=== PATIENT | female | born 1980 | race African-American/Black ===

== ENCOUNTER 2019-07-07 00:54 | Inpatient (IN) | payer BC ==
[~2019-07-07] VITALS: Ht 177.8 cm; Wt 65.8 kg
--- NOTE | 2019-07-07 01:06 | NUR ---
ED Nurse Note: pt walked in c/o RUQ abd pain radiating to umbilical area x 1.5 hr, pt reports pain started all of sudden, sharp pain and report pain relieved when she is standing straight. pt vss, no n/v/d at this time, will cont monitor. abd soft tender noted, active BS.
[2019-07-07] MEDS ORDERED: Morphine Sulfate 4mg/ml Inj (IV USE ONLY) IVP ONE ×2 (01:15→03:00)
--- NOTE | 2019-07-07 02:12 | Diagnostic Imaging Report ---
Indication: Abdominal pain Technique: Grayscale and duplex Doppler imaging of the abdomen performed. Comparison: None Findings: The liver is unremarkable. Doppler interrogation of the main portal vein shows patency with hepatopedal, monophasic flow. There is no biliary ductal dilatation identified. Gallbladder is unremarkable. CBD is 3.1 mm. There demonstrated part of the pancreas, aorta and IVC show no definite abnormalities. Both kidneys appear unremarkable. There is no hydronephrosis. IMPRESSION: No acute findings identified.
[2019-07-07 02:16] VITALS: BP 116/82
[2019-07-07 02:32] LABS: BASOPHILS % (AUTO) 1.1 % (0.0-2.0); HEMATOCRIT 41.6 % (37.0-47.0); HEMOGLOBIN 13.3 G/DL (12.0-16.0); LYMPHOCYTES % (AUTO) 20.5 % (20.0-45.0); MEAN CORPUSCULAR VOLUME 99 FL (80-99); MONOCYTES % (AUTO) 5.4 % (1.0-10.0); NEUTROPHILS % (AUTO) 68.9 % (45.0-75.0); PLATELET COUNT 214 K/UL (150-450); RED CELL DISTRIBUTION WIDTH 12.6 % (11.6-14.8); WHITE BLOOD COUNT 7.6 K/UL (4.8-10.8)
[2019-07-07 02:36] LABS: ANION GAP 10 mmol/L (5-15); BLOOD UREA NITROGEN 6 mg/dL (7-18); CALCIUM 9.2 MG/DL (8.5-10.1); CARBON DIOXIDE 28 MMOL/L (21-32); CHLORIDE 103 MMOL/L (98-107); CREATININE 0.8 MG/DL (0.55-1.30); POTASSIUM 3.5 MMOL/L (3.5-5.1); SODIUM 140 MMOL/L (136-145)
[2019-07-07 02:41] LABS: ALANINE AMINOTRANSFERASE 31 U/L (12-78); ALBUMIN 4.3 G/DL (3.4-5.0); ALBUMIN/GLOBULIN RATIO 0.9 (1.0-2.7); ALKALINE PHOSPHATASE 31 U/L (46-116); ASPARTATE AMINO TRANSFERASE 28 U/L (15-37); BILIRUBIN,TOTAL 0.9 MG/DL (0.2-1.0)
--- NOTE | 2019-07-07 02:50 | NUR ---
ED Nurse Note: pt reports pain is still unrelieved by pian medication, ERMD notified.
[2019-07-07] MEDS ORDERED: Isovue-300 100ml vial INJ PRN (03:00)
--- NOTE | 2019-07-07 03:14 | NUR ---
ED Nurse Note: pt off to CT.
[2019-07-07] MEDS: Ketorolac 30mg Inj IV ONE ×2 (03:15→03:47)
--- NOTE | 2019-07-07 03:49 | NUR ---
ED Nurse Note: PT RETURNED FROM CT, PT REPORTS PAIN IS STILL THERE BUT REFUSING PAIN MEDICATION. PT ADVISED TO NOTIFY STAFF IF NEED MEDICATION FOR PAIN, PT VERBALIZED UNDERSTANDING.
[2019-07-07 04:00] VITALS: BP 110/83
--- NOTE | 2019-07-07 04:14 | NUR ---
ED Nurse Note: pt reports nausea, ERMD notified, received order 4mg zofran via iv.
--- NOTE | 2019-07-07 04:35 | Diagnostic Imaging Report ---
Indication: Abdominal pain Technique: Continuous helical transaxial imaging of the abdomen and pelvis was obtained from the lung bases to the pubic symphysis during intravenous contrast administration. Coronal 2-D reformats were also obtained. Study obtained in a Siemens sensation [address] Automatic Exposure Control was utilized. Total Dose length Product (DLP): 643.[address] Dose Index Volume (CTDIvol): 14.56 mGy Comparison: None Findings: The study is very limited by the nonadministration of oral contrast material. There are multiple fluid-filled loops of small bowel demonstrated in the lower abdomen especially on the right. Consider enteritis. There is a 2.7 cm rim-enhancing cyst in the left adnexa/ovary. Uterus is present. Trace free fluid noted. Gallbladder is unremarkable. The kidneys, spleen, liver and pancreas are unremarkable. The appendix is not diffusely seen. Difficult to completely exclude early acute appendicitis. IMPRESSION: Consider mild enteritis. Left ovarian cyst [facility] has communicated the preliminary results to the Emergency Department. Their findings are largely concordant with this report. The CT scanner at [facility] is accredited by the [employer] and the scans are performed using dose optimization techniques as appropriate to a performed exam including Automatic Exposure control.
--- NOTE | 2019-07-07 05:11 | NUR ---
ED Nurse Note: Pt off to ultrasound.
[2019-07-07 06:00] VITALS: BP 129/63
[2019-07-07 06:33] LABS: APPEARANCE,URINE CLEAR; BILIRUBIN, URINE NEGATIVE (NEGATIVE); COLOR,URINE PALE YELLOW; GLUCOSE, URINE (UA) NEGATIVE (NEGATIVE); KETONES,URINE 1+ (NEGATIVE); LEUKOCYTE ESTERASE ,URINE NEGATIVE (NEGATIVE); NITRITE,URINE NEGATIVE (NEGATIVE); PH,URINE 6.5 (4.5-8.0); PROTEIN,URINE 1+ (NEGATIVE); UROBILINOGEN,URINE NORMAL MG/DL (0.0-1.0)
--- NOTE | 2019-07-07 06:34 | NUR ---
ED Nurse Note: report given to ADOLPH Conn from [facility].
[2019-07-07] MEDS ORDERED: Metoclopramide 10mg/2ml Inj ONE (06:42)
[2019-07-07] MEDS ORDERED: Ketorolac 30mg Inj ONE (06:42)
[2019-07-07] MEDS ORDERED: DiphenhydrAMINE 50mg/ml Inj ONE (06:42)
--- NOTE | 2019-07-07 06:50 | NUR ---
ED Nurse Note: pt reports nausea and pain, ERMD notified. received order and will continue to monitor.
--- NOTE | 2019-07-07 06:55 | Emergency Room Report ---
History of Present Illness General Chief Complaint: Abdominal Pain Source: Patient Present Illness HPI 38-year-old female presents ED for evaluation. Complaining of abdominal pain which started about 2 hours ago. Pain is epigastric, right upper quadrant, 8 out of 10, sharp, nonradiating. Notes nausea, denies vomiting. Denies diarrhea. Denies fevers or chills. No other aggravating relieving factors. Denies any other associated symptoms Allergies: Coded Allergies: No Known Allergies (Unverified , 07/07/19) Patient History Past Medical History: none Past Surgical History: none Pertinent Family History: none Social History: Denies: smoking, alcohol use, drug use Last Menstrual Period: 06/04/19 Now: No Immunizations: UTD Reviewed Nursing Documentation: PMH: Agreed; PSxH: Agreed Nursing Documentation-PMH Past Medical History: No Stated History Review of Systems All Other Systems: negative except mentioned in HPI Physical Exam Vital Signs Date Time Temp Pulse Resp B/P (MAP) Pulse Ox O2 Delivery O2 Flow Rate FiO2 07/07/19 01:06 99.3 99 18 124/74 (91) 100 Room Air Sp02 EP Interpretation: reviewed, normal General Appearance: no apparent distress, alert, GCS 15, non-toxic Head: normocephalic Eyes: bilateral eye normal inspection, bilateral eye PERRL ENT: normal ENT inspection Neck: normal inspection Respiratory: normal inspection Cardiovascular #1: normal inspection Gastrointestinal: normal bowel sounds, soft, non-distended, no guarding, no rebound, guarding, tenderness Rectal: deferred Genitourinary: normal inspection Musculoskeletal: back normal, gait/station normal, normal range of motion, non- tender Neurologic: alert, oriented x3, responsive, motor strength/tone normal, sensory intact, speech normal Psychiatric: normal inspection Skin: no rash Lymphatic: normal inspection Medical Decision Making Diagnostic Impression: Primary Impression: Intractable abdominal pain ER Course Hospital Course 38-year-old female presents ED with abdominal pain and nausea Differential diagnoses include: BPH, cystitis, pyelonephritis, kidney stone Clinical course Patient placed on stretcher. monitor technician. After initial history and physical I ordered labs, IV fluids, UA, pain medication and ABD US Labs - no leukocytosis, Hb/Hct stable. electrolytes ok, UA negative US - no acute process Continues to have pain so CT was ordered CT abdomen and pelvis - some enhancement in right adnexa ? Small bowel versus ruptured ovarian cyst versus hydrosalpinx versus pyosalpinx versus ectopic Therefore pelvic ultrasound was ordered No ovarian pathology however there does appear to be what could be bowel in the right adnexa. Consideration for hernia. Patient continues to have pain and vomiting. Will admit Case discussed with Dr. Ingram and he agreed to accept the patient to his service for further care and support Dr Sabillon will consult and see patient I feel this is a highly complex case requiring extensive working including EKG/ Rhythm strip, Xray/CT/US, Blood/urine lab work, repeat exams while in ED, and administration of strong opiates/narcotics for pain control, admission to hospital or close patient follow up. Diagnosis - intractable abd pain Patient admitted to floor in serious condition Labs Test 07/07/19 02:00 07/07/19 06:15 White Blood Count 7.6 K/UL (4.8-10.8) Red Blood Count 4.20 M/UL (4.20-5.40) Hemoglobin 13.3 G/DL (12.0-16.0) Hematocrit 41.6 % (37.0-47.0) Mean Corpuscular Volume 99 FL (80-99) Mean Corpuscular Hemoglobin 31.8 PG (27.0-31.0) Mean Corpuscular Hemoglobin Concent 32.0 G/DL (32.0-36.0) Red Cell Distribution Width 12.6 % (11.6-14.8) Platelet Count 214 K/UL (150-450) Mean Platelet Volume 7.0 FL (6.5-10.1) Neutrophils (%) (Auto) 68.9 % (45.0-75.0) Lymphocytes (%) (Auto) 20.5 % (20.0-45.0) Monocytes (%) (Auto) 5.4 % (1.0-10.0) Eosinophils (%) (Auto) 4.0 % (0.0-3.0) Basophils (%) (Auto) 1.1 % (0.0-2.0) Sodium Level 140 MMOL/L (136-145) Potassium Level 3.5 MMOL/L (3.5-5.1) Chloride Level 103 MMOL/L (98-107) Carbon Dioxide Level 28 MMOL/L (21-32) Anion Gap 10 mmol/L (5-15) Blood Urea Nitrogen 6 mg/dL (7-18) Creatinine 0.8 MG/DL (0.55-1.30) Estimat Glomerular Filtration Rate > 60 mL/min (>60) Glucose Level 85 MG/DL (74-106) Calcium Level 9.2 MG/DL (8.5-10.1) Total Bilirubin 0.9 MG/DL (0.2-1.0) Aspartate Amino Transf (AST/SGOT) 28 U/L (15-37) Alanine Aminotransferase (ALT/SGPT) 31 U/L (12-78) Alkaline Phosphatase 31 U/L (46-116) Total Protein 9.1 G/DL (6.4-8.2) Albumin 4.3 G/DL (3.4-5.0) Globulin 4.8 g/dL Albumin/Globulin Ratio 0.9 (1.0-2.7) Lipase 221 U/L (73-393) Human Chorionic Gonadotropin, Qual Negative (NEGATIVE) Urine Color Pale yellow Urine Appearance Clear Urine pH 6.5 (4.5-8.0) Urine Specific [place] 1.010 (1.005-1.035) Urine Protein 1+ (NEGATIVE) Urine Glucose (UA) Negative (NEGATIVE) Urine Ketones 1+ (NEGATIVE) Urine Blood 3+ (NEGATIVE) Urine Nitrite Negative (NEGATIVE) Urine Bilirubin Negative (NEGATIVE) Urine Urobilinogen Normal MG/DL (0.0-1.0) Urine Leukocyte Esterase Negative (NEGATIVE) Urine RBC 5-10 /HPF (0 - 2) Urine WBC 0-2 /HPF (0 - 2) Urine Squamous Epithelial Cells Moderate /LPF (NONE/OCC) Urine Bacteria Few /HPF (NONE) Urine HCG, Qualitative Negative (NEGATIVE) CT/MRI/US Diagnostic Results CT/MRI/US Diagnostic Results #1: Imaging Test Ordered: ABD US Impression FINDINGS: Liver: Normal size and echotexture, 16.6 cm length.. No focal lesion. Portal vein patent with appropriate direction of flow. Bile ducts: CBD 0.3 cm diameter, normal. No stones. Gallbladder: No gallstones, wall thickening, or pericholecystic fluid. Pancreas: Unremarkable, as visualized. Spleen: 7.0 cm length, normal. No focal lesion. Right kidney: Normal size and echotexture, 9.3 cm length. No mass, hydronephrosis, or calculi. Left kidney: Normal size and echotexture, 8.6 cm length. No mass, hydronephrosis, or calculi. Aorta and IVC: Unremarkable, as visualized. No aortic aneurysm. Peritoneum: No free fluid. CT/MRI/US Diagnostic Results #2: Imaging Test Ordered: CT A/P Impression IMPRESSION: Peripherally enhancing tubular appearing fluid in the right adnexal region and small free fluid in the pelvis. Differential diagnosis includes normal fluid-filled small bowel extending into the adnexal region, recent ovulation, ruptured ovarian cyst, hydrosalpinx, pyosalpinx PID and ectopic . Correlate with urine test and consider further evaluation with pelvic ultrasound. CT/MRI/US Diagnostic Results #3: Imaging Test Ordered: Pelvic US Impression IMPRESSION: No evidence of ovarian torsion. Small free fluid in both adnexal regions and pelvic cul-de-sac, nonspecific. Normal right ovary. No adnexal mass, loculated fluid collection or evidence of hydrosalpinx. Area of right adnexal fluid and peripheral enhancement on prior CT likely represents small bowel. A 3.1 cm simple cyst left ovary, incidental finding. No follow-up required. Last Vital Signs Date Time Temp Pulse Resp B/P (MAP) Pulse Ox O2 Delivery O2 Flow Rate FiO2 07/07/19 06:00 97.8 80 18 129/63 100 Room Air Status: improved Disposition: ADMITTED INPATIENT Condition: Serious Referrals: NOT CHOSEN IPA/,REFERRING (PCP) Paulo Dowell MD Jul 07, 2019 06:55
[2019-07-07] MEDS ORDERED: Ketorolac 30mg Inj IV ONE (07:00)
[2019-07-07] MEDS ORDERED: DiphenhydrAMINE 50mg/ml Inj IVP ONE (07:00)
[2019-07-07] MEDS ORDERED: Metoclopramide 10mg/2ml Inj IVP ONE (07:00)
--- NOTE | 2019-07-07 07:00 | NUR ---
ED Nurse Note: pt transferred to [facility], all belongings sent w/ pt w/ completed list, care endorsed to [facility]. med recon done, pt med in the med box. iv intact and patent, vss.
--- NOTE | 2019-07-07 07:00 | NUR ---
NURSE NOTES: Pt awake, A/O x 4, calm, complained of abd pain, 02/02. Denies N/V. Received adm orders. call light within reach. will continue to monitor.
--- NOTE | 2019-07-07 07:07 | Diagnostic Imaging Report ---
Indication:Lower abdominal and pelvic pain Technique: Grayscale and duplex Doppler imaging of the pelvis performed utilizing a transabdominal and endovaginal scan. Comparison: None Findings: The size, contour, and configuration of the uterus is within normal limits. The endometrium is uniformly echogenic and normal in thickness. Endometrium is 9 mm. The ovaries appear normal bilaterally with good dopplerable blood flow. There is no significant free fluid identified. Right ovary 3.2 x 2.5 x 2.2 cm. Left ovary 4.8 x 3 x 2.6 cm. There is a left ovarian cyst slightly heterogeneous with a fluid/fluid level measuring about 3 cm in diameter. IMPRESSION: Left ovarian hemorrhagic cyst. Suggest follow-up in 6 weeks. Negative evaluation otherwise.
[2019-07-07] MEDS ORDERED: AUGMENTIN 875-1 EAC1 ORAL (07:08)
[2019-07-07 07:26] VITALS: BP 112/73
[2019-07-07] MEDS ORDERED: D5NS 1,000 ML IV SCH (08:45)
[2019-07-07] MEDS ORDERED: Morphine Sulfate 2mg/ml Inj(IV/IM USE ONLY) IVP PRN (08:45)
[2019-07-07] MEDS ORDERED: cefTRIAXone 1gm/D5W 55ml IVPB SCH ×2 (10:00)
--- NOTE | 2019-07-07 11:13 | NUR ---
*-* NO INSURANCE INFORMATION IN THE BAR UNABLE TO SEND CLINICALS OR REVIEWS *-*
--- NOTE | 2019-07-07 11:24 | NUR ---
CASE MANAGEMENT:REVIEW 38 YR OLD FEMALE WALKED INTO ER CC: RUQ PAIN RADIATING TO UMBILICAL AREA SI:INTRACTABLE ABDOMINAL PAIN 99.4 99 18 124/74 100% ON RA IS: IV ZOFRAN IV PEPCID IV MORPHINE X2 IV TORADOL X1 500CC NS BOLUS PELVIC AND ABD US CT ABD/PELVIS : TO MED/SURG [facility]
--- NOTE | 2019-07-07 14:37 | Consultation ---
History of Present Illness General Date patient seen: Jul 07, 2019 Reason for Hospitalization: Abdominal Pain Present Illness HPI 38-year-old female presented to the emergency department at [facility] complaining of acute onset of right lower quadrant abdominal pain without nausea or emesis. Patient states pain was sharp 10 out of 10 pain and ever since admission has significantly improved. Labs normal, CT as below, ultrasound normal. Surgery called to evaluate and assist with care. Patient seen, patient evaluated, chart reviewed. Currently no pain no nausea no vomiting no discomfort Allergies: Coded Allergies: No Known Allergies (Unverified , 07/07/19) Medication History Scheduled Amoxicillin/Potassium Clav 875-125* (Augmentin 875-125 Tablet*), 1 TAB ORAL TWICE A DAY, (Reported) Patient History History Provided By: Patient, Family Member, Medical Record, PMD Healthcare decision maker Resuscitation status Full Code Advanced Directive on File Past Medical/Surgical History Past Medical/Surgical History: (1) Abdominal pain (2) Intractable abdominal pain Review of Systems Review of Symptoms General ROS: no weight loss or fever Psychological ROS: no depression or mood changes, no memory loss Ophthalmic ROS: no visual changes or eye irritation ENT ROS: no nasal congestion, hearing loss, dizziness Allergy and Immunology ROS: no allergic symptoms or urticaria Hematological and Lymphatic ROS: no swollen glands, unusual bleeding or bruising Endocrine ROS: no polyuria, polydipsia, weight changes, temperature intolerance Respiratory ROS: no cough, shortness of breath, or wheezing Cardiovascular ROS: no chest pain or dyspnea on exertion Gastrointestinal ROS: denies abdominal pain, no bright red blood in stool. Musculoskeletal ROS: no myalgias or arthralgias Neurological ROS: no TIA or stroke symptoms Dermatological ROS: no new or changing skin lesions, rashes or pruritis Physical Exam Physical Exam General appearance: alert, cooperative, no distress, appears stated age Head: Normocephalic, without obvious abnormality, atraumatic Eyes: conjunctivae/corneas clear. PERRL, EOM's intact. Fundi benign Throat: Lips, mucosa, and tongue normal. Teeth and gums normal Neck: supple, symmetrical, trachea midline, no adenopathy, thyroid: not enlarged, symmetric, no tenderness/mass/nodules, no carotid bruit and no JVD Lungs: clear to auscultation bilaterally Heart: regular rate and rhythm, S1, S2 normal, no murmur, click, rub or gallop Abdomen: soft, non-tender. Bowel sounds normal. No masses, no organomegaly Extremities: extremities normal, atraumatic, no cyanosis or edema Pulses: 2+ and symmetric Skin: Skin color, texture, turgor normal. No rashes or lesions Neurologic: Grossly normal Last 24 Hour Vital Signs Date Time Temp Pulse Resp B/P (MAP) Pulse Ox O2 Delivery O2 Flow Rate FiO2 07/07/19 07:39 Room Air 07/07/19 07:31 97.7 07/07/19 07:26 97.7 70 18 112/73 (86) 100 07/07/19 07:00 98.9 87 18 129/63 98 Room Air 07/07/19 06:00 97.8 80 18 129/63 100 Room Air 07/07/19 04:00 97.8 78 18 110/83 100 Room Air 07/07/19 02:28 99.3 07/07/19 02:28 99.3 07/07/19 02:16 99 18 Room Air 07/07/19 02:16 99.3 80 18 116/82 100 Room Air 07/07/19 01:06 99.3 99 18 124/74 (91) 100 Room Air Laboratory Tests Test 07/07/19 02:00 07/07/19 06:15 White Blood Count 7.6 K/UL (4.8-10.8) Red Blood Count 4.20 M/UL (4.20-5.40) Hemoglobin 13.3 G/DL (12.0-16.0) Hematocrit 41.6 % (37.0-47.0) Mean Corpuscular Volume 99 FL (80-99) Mean Corpuscular Hemoglobin 31.8 PG (27.0-31.0) H Mean Corpuscular Hemoglobin Concent 32.0 G/DL (32.0-36.0) Red Cell Distribution Width 12.6 % (11.6-14.8) Platelet Count 214 K/UL (150-450) Mean Platelet Volume 7.0 FL (6.5-10.1) Neutrophils (%) (Auto) 68.9 % (45.0-75.0) Lymphocytes (%) (Auto) 20.5 % (20.0-45.0) Monocytes (%) (Auto) 5.4 % (1.0-10.0) Eosinophils (%) (Auto) 4.0 % (0.0-3.0) H Basophils (%) (Auto) 1.1 % (0.0-2.0) Sodium Level 140 MMOL/L (136-145) Potassium Level 3.5 MMOL/L (3.5-5.1) Chloride Level 103 MMOL/L (98-107) Carbon Dioxide Level 28 MMOL/L (21-32) Anion Gap 10 mmol/L (5-15) Blood Urea Nitrogen 6 mg/dL (7-18) L Creatinine 0.8 MG/DL (0.55-1.30) Estimat Glomerular Filtration Rate > 60 mL/min (>60) Glucose Level 85 MG/DL (74-106) Calcium Level 9.2 MG/DL (8.5-10.1) Total Bilirubin 0.9 MG/DL (0.2-1.0) Aspartate Amino Transf (AST/SGOT) 28 U/L (15-37) Alanine Aminotransferase (ALT/SGPT) 31 U/L (12-78) Alkaline Phosphatase 31 U/L (46-116) L Total Protein 9.1 G/DL (6.4-8.2) H Albumin 4.3 G/DL (3.4-5.0) Globulin 4.8 g/dL Albumin/Globulin Ratio 0.9 (1.0-2.7) L Lipase 221 U/L (73-393) Human Chorionic Gonadotropin, Qual Negative (NEGATIVE) Urine Color Pale yellow Urine Appearance Clear Urine pH 6.5 (4.5-8.0) Urine Specific [place] 1.010 (1.005-1.035) Urine Protein 1+ (NEGATIVE) H Urine Glucose (UA) Negative (NEGATIVE) Urine Ketones 1+ (NEGATIVE) H Urine Blood 3+ (NEGATIVE) H Urine Nitrite Negative (NEGATIVE) Urine Bilirubin Negative (NEGATIVE) Urine Urobilinogen Normal MG/DL (0.0-1.0) Urine Leukocyte Esterase Negative (NEGATIVE) Urine RBC 5-10 /HPF (0 - 2) H Urine WBC 0-2 /HPF (0 - 2) Urine Squamous Epithelial Cells Moderate /LPF (NONE/OCC) H Urine Bacteria Few /HPF (NONE) Urine HCG, Qualitative Negative (NEGATIVE) Height (Feet): 5 Height (Inches): 10.00 Weight (Pounds): 145 Medications Current Medications Medications (Trade) Dose Ordered Sig/Moe Route PRN Reason Start Time Stop Time Status Last Admin Dose Admin Ceftriaxone Sodium 1 gm/ Dextrose 55 ml @ 110 mls/hr DAILY IVPB 07/07/19 10:00 07/14/19 09:59 07/07/19 11:01 Dextrose/Sodium Chloride 1,000 ml @ 85 mls/hr [id number] IV 07/07/19 08:45 08/06/19 08:44 07/07/19 08:00 Iopamidol (Isovue-300 100ml) 100 ml NOW PRN INJ Radiology Procedure 07/07/19 03:00 07/09/19 23:59 Morphine Sulfate (Morphine Sulfate) 1 mg Q4H PRN IVP PAIN 4-10 07/07/19 08:45 07/14/19 08:44 Ondansetron HCl (Zofran) 4 mg Q4H PRN IVP Nausea & Vomiting 07/07/19 08:45 08/06/19 08:44 Assessment/Plan Problem List: (1) Abdominal pain Assessment & Plan: 38F acute abdominal pain resolved since admission labs nml us nml CT w/ Findings: The study is very limited by the nonadministration of oral contrast material. There are multiple fluid-filled loops of small bowel demonstrated in the lower abdomen especially on the right. Consider enteritis. There is a 2.7 cm rim-enhancing cyst in the left adnexa/ovary. Uterus is present. Trace free fluid noted. Gallbladder is unremarkable. The kidneys, spleen, liver and pancreas are unremarkable. The appendix is not diffusely seen. Difficult to completely exclude early acute appendicitis. doing well now tolerating diet no acute surgical intervention planned cont diet AM labs will follow with recs thank you ICD Codes: R10.9 - Unspecified abdominal pain SNOMED: [id number] [facility] Hospital declaration INPATIENT level of care is warranted for this patient because patient is a 89 year old with who presents with suspicion of . I have a high level of concern because . Patient is at high risk for . Plan of care/treatment include . Patient care is expected to be greater than 2 midnights. OBSERVATION level of care is warranted for this patient. Patient is a 89 year old with who presents with . Patient will be admitted for 1 midnight, but if additional night(s) is/are necessary, patient will be converted to inpatient status for the entire hospitalization Disposition: Once the patient is stable to leave the hospital, I anticipate the patient will likely be discharged to the following environment: Estimated discharge date: I spent 70 minutes on this patient's case, and minutes was dedicated to counseling and/or care coordination. MIPS ([employer]-based Incentive Payment System) Applicable CPT: 18027, 01021 CHECK ALL THAT ARE MET: Measure #5 (CHF): All ages. Prescribe AMAURY/ARB upon discharge for patients with left ventricular systolic dysfunction. If not, the reason is clearly documented in the medical chart. Measure #8 (CHF): All ages. Prescribe a beta veróncia upon discharge for patients with left ventricular systolic dysfunction. If not, the reason is clearly documented in the medical chart. Measure #47 Advance care plan or surrogate decision maker documented in the medical record. Measure #130 The provider has documented, updated, or reviewed the patients current medication list and has documented it in the patients note. Measure #374 (All): Send report to referring provider. Measure #407(Sepsis due to MSSA bacteremia): Age 18+ Patient treated with a beta-lactam antibiotic (Nafcillin, Oxacillin or Cefazolin) as definitive therapy. MEDICAL COMPLEXITY High complexity medical decision making (need 2/3 categories) Problem - need 4 points Acute/new problem with new plan for workup (4 points, 1 max) Acute/new problem without additional workup (3 points, 1 max) Unstable chronic problem actively being managed (2 point each, 2 max) Stable chronic problem actively being managed (1 point each, 2 max) Self-limited/transient process (constipation, muscle ache, etc) (1 point each , 2 max) Data - need 4 points Reviewed labs/imaging studies (1 points, 2 max) Independent review of imaging (EKG, xrays, etc) (2 points, 2 max) Discussed case with consult/other MD/RN (2 points, 2 max) High Risk - qualify if have one of the following: Severe exacerbation of acute problem, acute mental status change, IV narcotics , monitoring drug levels (vancomycin, INR, tacrolimus etc) Francisco Sabillon Jul 07, 2019 14:37
--- NOTE | 2019-07-07 15:00 | NUR ---
Social Service Note Letter completed for patient to return to work.
--- NOTE | 2019-07-07 16:03 | NUR ---
NURSE NOTES: Received order to discharge pt home with no med. pt stable condition, VS stable. denies pain. no SOB noted. voiding, no BM. tolerating diet well. no N/V. belongings with pt /mother at bedside. home med with pt. IV d/c. mother at bedside will give ride home.
--- NOTE | 2019-07-07 19:45 | History and Physical Report ---
DATE OF ADMISSION: 07/07/2019 REASON FOR ADMISSION: Abdominal pain. HISTORY OF PRESENT ILLNESS: This is a 38-year-old female who is mid cycle with regard to her menses developed abdominal pain two hours prior to presentation to this emergency room. She describes it as epigastric in the right upper quadrant, severe, sharp and nonradiating. She had nausea but no vomiting. No diarrhea. No fevers or chills. No recent change in diet or travel. The patient was started on Augmentin about 5 days ago for an ear infection. PAST MEDICAL HISTORY: Otherwise unremarkable. ALLERGIES: None. FAMILY HISTORY: Noncontributory. SOCIAL HISTORY: Negative for smoking, alcohol, or substance abuse. MEDICATIONS: Prior to admission, none. REVIEW OF SYSTEMS: She had a [employer] exam in the last 3 months, it was described as unremarkable. PHYSICAL EXAMINATION: VITAL SIGNS: Blood pressure 124/74, pulse 99, respirations 18, and temperature 99.3. GENERAL: The patient is well appearing, no distress. HEENT: Conjunctiva pink. Oropharynx clear. NECK: Supple. LUNGS: Clear. CARDIAC: Regular. Normal S1 and S2. ABDOMEN: Soft. Mildly tender in the right upper quadrant. No guarding or rebound. NEUROLOGIC: Nonfocal. LABORATORY AND DIAGNOSTIC DATA: Imaging studies are reviewed including CAT scan, vaginal and abdominal ultrasound. Findings notable for possible enteritis, left ovarian cyst hemorrhagic. Laboratory studies reviewed. IMPRESSION: Possible gastroenteritis, no signs of acute abdominal pathology, hemorrhagic ovarian cyst unlikely to be associated with presenting symptoms. PLAN: 1. Hydration and bowel rest. 2. Surgical evaluation. 3. If symptoms improve, she may be discharged with outpatient medical and gynecologic follow up. Koko Ingram M.D. DR: Zina JOB#: [id number] CC:
--- NOTE | 2019-07-08 12:40 | Discharge Summary ---
Discharge Summary Discharge Summary _ Discharge summary DATE OF ADMISSION: 07/07/2019 DATE OF DISCHARGE: 07/07/2019 DISCHARGED BY: REASON FOR ADMISSION: 38 years old female with no significant past medical history , developed abdominal pain two hours prior to presentation to emergency department. Pain described as epigastric and in the right upper quadrant, severe , sharp and nonradiating. Patient reported nausea , but no vomiting. No diarrhea. No fever or chills. No recent change in diet. No recent traveling. Patient started on Augmentin 5 days ago for ear infection. Patient had a [employer] exam in the last 3 months and it was unremarkable. Abdominal ultrasound revealed no acute findings. No hydronephrosis , both kidneys appeared to be unremarkable. Gallbladder unremarkable. No biliary ductal dilatation. CT of the abdomen and pelvis demonstrated possible mild enteritis. Left ovarian cyst. Pelvic/transvaginal ultrasound revealed left ovarian hemorrhagic cyst. Suggested follow-up in 6 weeks. Negative evaluation otherwise. Laboratory work-up revealed no leukocytosis , stable hemoglobin and hematocrit. Stable electrolytes and renal parameters. Urine test was negative. Urinalysis revealed no evidence of urinary tract infection , but showed hematuria and +1 protein. Patient admitted to medical surgical floor for further management. CONSULTANTS: surgery Dr. Sabillon [facility] COURSE: Patient admitted to medical surgical floor. Patient started on IV hydration and initially was on clear liquid diet. Symptomatic treatment provided. Hemorrhagic ovarian cyst was unlikely associated with the presenting symptoms. Surgeon seen and evaluated patient. Patient was started on diet and was able to tolerate diet. Pain management was addressed , and pain was controlled. Per surgeon no acute surgical intervention was planned. Patient was stable for discharge home with outpatient follow-up with her [employer] in 6 weeks to repeat ultrasound. Due to rapid and unexpected improvement in patient condition, patient was discharged in 1 day. FINAL DIAGNOSES: Possible gastroenteritis Hemorrhagic ovarian cyst DISCHARGE MEDICATIONS: See Medication Reconciliation list. DISCHARGE INSTRUCTIONS: Patient was discharged home. Outpatient follow-up with [employer] in 6 weeks for to repeat ultrasound for further evaluation of hemorrhagic cyst. I have been assigned to dictate discharge summary for this account. I was not involved in the patient's management. Deidra Reyes NP Jul 08, 2019 12:40
== END 2019-07-07 16:15 | disposition home or self-care (01) | DRG 392 ==
LOC: EMR 01:16 → 4E 04:57 → EDBEDREQ 06:36
DX: K52.9 Noninfective gastroenteritis and colitis, unspecified (principal); N83.209 Unspecified ovarian cyst, unspecified side
CPT/HCPCS: 36415; 74177; 76700; 76830; 76856; 80053; 81003; 81025; 83690; 84703; 85025; 96374; 96375; 96376; 99285; J2405; J2765